=== PATIENT | male | born 1965 | race African-American/Black ===

== ENCOUNTER 2017-03-05 15:15 | Emergency (ER) | payer OTHER ==
[2017-03-05] MEDS ORDERED: NORMAL SALINE 500 ML IV ONE (16:38)
--- NOTE | 2017-03-05 16:41 | ER Document Report ---
ED Medical Screen (RME) - General Chief Complaint: Urinary Problem Stated Complaint: LOW BACK PAIN Notes: I briefly seen and evaluated this patient in my role as physician in triage. I have initiated orders based on this initial evaluation. Please see my colleague' s documentation for complete history, physical, management, diagnosis, and ultimate disposition. My brief evaluation: Patient got a phone call left on his voicemail today by his doctor stating he needs to be followed up because they found something on his lumbar MRI that was concerning. [facility]. He presents with papers from the MRI results that show he has bladder outlet obstruction with bilateral moderate hydronephrosis. Patient has no history of kidney stones. No history of prostate hypertrophy. He does state that his urinary stream has been difficult recently. He denies any fevers chills sweats. No hematuria. On exam, patient alert and oriented no acute distress vital signs are stable patient is afebrile nontoxic appearing. Medical decision making: Initiating workup for bladder lead obstruction with concern for mass versus severe prostatic hypertrophy. Patient is not currently in pain. Past Medical History Renal/ Medical History: Denies: Hx Peritoneal Dialysis Physical Exam - Vital signs Vitals: Temp Pulse Resp BP Pulse Ox 98.5 F 81 24 H 150/56 H 96 03/05/17 15:33 03/05/17 15:33 03/05/17 15:33 03/05/17 15:33 03/05/17 15:33 Course - Vital Signs Vital signs: Temp Pulse Resp BP Pulse Ox 98.5 F 81 24 H 150/56 H 96 03/05/17 15:33 03/05/17 15:33 03/05/17 15:33 03/05/17 15:33 03/05/17 15:33
[2017-03-05 17:05] LABS: ABSOLUTE BASOPHILS # (AUTO) 0.1 10^3/uL (0.0-0.2); ABSOLUTE EOSINOPHILS # (AUTO) 0.2 10^3/uL (0.0-0.6); ABSOLUTE LYMPHOCYTES (AUTO) 1.9 10^3/uL (0.5-4.7); ABSOLUTE MONOCYTES (AUTO) 0.6 10^3/uL (0.1-1.4); ABSOLUTE NEUT (AUTO) 4.8 10^3/uL (1.7-8.2); BASOPHILS % (AUTO) 0.8 % (0-2); HEMATOCRIT 46.6 % (37.9-51.0); HGB HCT DIFFERENCE 1.4; LYMPHOCYTES % (AUTO) 24.7 % (13-45); MEAN CORPUSCULAR HEMOGLOBIN 27.7 pg (27.0-33.4); MEAN CORPUSCULAR HGB CONC 34.3 g/dL (32.0-36.0); MEAN CORPUSCULAR VOLUME 81 fl (80-97); MONOCYTES % (AUTO) 7.3 % (3-13); RED BLOOD COUNT 5.77 10^6/uL (4.35-5.55); RED CELL DISTRIBUTION WIDTH 14.7 % (11.5-14.0); SEGMENTED NEUTROPHILS % (AUTO) 64.2 % (42-78); WHITE BLOOD COUNT 7.5 10^3/uL (4.0-10.5)
[2017-03-05 17:07] LABS: APPEARANCE,URINE CLEAR; BILIRUBIN,URINE NEGATIVE (NEGATIVE); GLUCOSE, URINE >=500 mg/dL (NEGATIVE); KETONES,URINE NEGATIVE (NEGATIVE); LEUKOCYTE ESTERASE,URINE NEGATIVE (NEGATIVE); NITRITE,URINE NEGATIVE (NEGATIVE); PROTEIN,URINE NEGATIVE (NEGATIVE); URINE SPECIFIC GRAVITY 1.011; UROBILINOGEN,URINE NEGATIVE mg/dL (<2.0)
[2017-03-05 17:24] LABS: ALANINE AMINOTRANSFERASE 38 U/L (21-72); ALBUMIN 4.1 g/dL (3.5-5.0); ALKALINE PHOSPHATASE 85 U/L (38-126); ANION GAP 12 (5-19); ASPARTATE AMINO TRANSFERASE 27 U/L (17-59); BILIRUBIN,DIRECT 0.3 mg/dL (0.0-0.4); BILIRUBIN,TOTAL 0.8 mg/dL (0.2-1.3); BLOOD UREA NITROGEN 11 mg/dL (7-20); CALCIUM 9.2 mg/dL (8.4-10.2); CARBON DIOXIDE 26 mmol/L (22-30); CHLORIDE 104 mmol/L (98-107); CREATININE RESULT 1.09 mg/dL (0.52-1.25); GLUCOSE 263 mg/dL (75-110); POTASSIUM 4.3 mmol/L (3.6-5.0); SODIUM 141.5 mmol/L (137-145); TOTAL PROTEIN 7.2 g/dL (6.3-8.2)
--- NOTE | 2017-03-05 18:39 | ER Document Report ---
ED GI/ - General Chief Complaint: Urinary Problem Stated Complaint: LOW BACK PAIN Notes: The patient is a 51-year-old male who presents from the [place] clinic after an outpatient MRI showed bilateral hydronephrosis and is sent to the ER to rule out an obstruction. He says that he is having difficulty urinating over the past several days. He has no history of enlarged prostate. He denies nausea, vomiting, fevers, dysuria, hematuria, chest pain, shortness of breath, headache , diarrhea, constipation or abdominal pain. Past Medical History - General Information source: Patient - Social History Smoking Status: Never Smoker Family History: Reviewed & Not Pertinent Patient has suicidal ideation: No Patient has homicidal ideation: No Renal/ Medical History: Denies: Hx Peritoneal Dialysis Review of Systems - Review of Systems Notes: REVIEW OF SYSTEMS: CONSTITUTIONAL: -fevers, -chills EENT: -eye pain, -difficulty swallowing, -nasal congestion CARDIOVASCULAR:-chest pain, -syncope. RESPIRATORY: -cough, -SOB GASTROINTESTINAL: -abdominal pain, -nausea, -vomiting, -diarrhea GENITOURINARY: -dysuria, -hematuria, +difficulty urinating MUSCULOSKELETAL: +back pain, -neck pain SKIN: -rash or skin lesions. HEMATOLOGIC: -easy bruising or bleeding. LYMPHATIC: -swollen, enlarged glands. NEUROLOGICAL: -altered mental status or loss of consciousness, -headache, - neurologic symptoms PSYCHIATRIC: -anxiety, -depression. ALL OTHER SYSTEMS REVIEWED AND NEGATIVE. Physical Exam - Vital signs Vitals: Temp Pulse Resp BP Pulse Ox 98.5 F 81 24 H 150/56 H 96 03/05/17 15:33 03/05/17 15:33 03/05/17 15:33 03/05/17 15:33 03/05/17 15:33 - Notes Notes: PHYSICAL EXAMINATION: GENERAL: Well-appearing, well-nourished and in no acute distress. HEAD: Atraumatic, normocephalic. EYES: Pupils equal round and reactive to light, extraocular movements intact, sclera anicteric, conjunctiva are normal. ENT: nares patent, oropharynx clear without exudates. Moist mucous membranes. NECK: Normal range of motion, supple without lymphadenopathy LUNGS: Breath sounds clear to auscultation bilaterally and equal. No wheezes rales or rhonchi. HEART: Regular rate and rhythm without murmurs ABDOMEN: Soft, nontender, normoactive bowel sounds. No guarding, no rebound. No masses appreciated. EXTREMITIES: Normal range of motion, no pitting or edema. No cyanosis. NEUROLOGICAL: Cranial nerves grossly intact. Normal speech, normal gait. Normal sensory, motor, and reflex exams. PSYCH: Normal mood, normal affect. SKIN: Warm, Dry, normal turgor, no rashes or lesions noted. Course - Re-evaluation Re-evalutation: Patient has no symptoms at this time. CT abdomen and pelvis do not show any hydronephrosis or evidence of urinary obstruction. Labs are all unremarkable. Patient is asymptomatic at this time. Told him to follow-up with his primary care physician and urologist to discuss urinary hesitancy. - Vital Signs Vital signs: Temp Pulse Resp BP Pulse Ox 98.5 F 81 24 H 150/56 H 96 03/05/17 15:33 03/05/17 15:33 03/05/17 15:33 03/05/17 15:33 03/05/17 15:33 - Laboratory Result Diagrams: 03/05/17 16:52 03/05/17 16:52 Laboratory results interpreted by me: 03/05/17 03/05/17 03/05/17 16:52 16:52 16:52 RBC 5.77 H RDW 14.7 H Glucose 263 H Urine Glucose (UA) >=500 H Urine Ascorbic Acid 40 H - Diagnostic Test Radiology reviewed: Image reviewed, Reports reviewed Radiology results interpreted by me: CT A/P: NAD Discharge - Discharge Clinical Impression: History of urinary hesitancy Condition: Good Disposition: HOME, SELF-CARE Additional Instructions: Have your blood sugar and blood pressure rechecked by your primary care physician. NORMAL EXAM AND WORKUP: At this time, your examination and workup show no significant abnormality. No significant abnormal physical findings were noted. All laboratory, EKG, and imaging (x-ray, CT scans, ultrasound) studies that were ordered show no significant abnormality. Although your examination and all studies that were ordered showed no significant abnormal finding, there are no examinations and no studies that are 100% accurate. There is always the possibility that some abnormality could exist and not be detected with physical examination or within the limits and capabilities of laboratory and other studies. You should return or follow up as you were instructed on your visit today for further evaluation if your symptoms do not resolve.
[2017-03-05 21:48] VITALS: BP 136/56
== END 2017-03-05 21:30 | disposition home or self-care (01) ==
LOC: ER 15:15
DX: R39.198 Other difficulties with micturition (principal); M54.5 Low back pain
CPT/HCPCS: 99284; 96360; 36415; 85025; 80053; 81001; 74177; J7040

== ENCOUNTER → 2020-09-10 | Outpatient (CLI) | payer BC, OTHER ==
--- NOTE | 2020-09-10 15:51 | RADIOLOGY REPORT (SQ) ---
EXAM DESCRIPTION: SHOULDER RIGHT 2 OR MORE VIEWS IMAGES COMPLETED DATE/TIME: 09/10/2020 1:06 pm REASON FOR STUDY: PAIN IN RT SHOULDER M25.511 PAIN IN RIGHT SHOULDER COMPARISON: None. NUMBER OF VIEWS: Three views. TECHNIQUE: Internal rotation, external rotation, and Y view images acquired of the right shoulder. LIMITATIONS: None. FINDINGS: MINERALIZATION: Normal. BONES: No acute fracture. No worrisome bone lesions. JOINTS: No dislocation. Mild acromioclavicular and glenohumeral osteophytosis. VISUALIZED LUNGS AND RIBS: No pneumothorax. No rib fracture. SOFT TISSUES: Questionable axillary soft tissue mass. No radiopaque foreign body. OTHER: No other significant finding. IMPRESSION: No evidence of acute bony abnormality of the right shoulder. Mild acromioclavicular and glenohumeral osteoarthropathy. Questionable axillary soft tissue mass versus skin folds. Recommend correlation with physical exam. TECHNICAL DOCUMENTATION: JOB ID: [id number] 2010 [employer]- All Rights Reserved Reading location - IP/workstation name: [email or web address]
--- NOTE | 2020-09-10 16:31 | RADIOLOGY REPORT (SQ) ---
EXAM DESCRIPTION: SCAPULA RIGHT IMAGES COMPLETED DATE/TIME: 09/10/2020 1:06 pm REASON FOR STUDY: PAIN IN RT SHOULDER M25.511 PAIN IN RIGHT SHOULDER COMPARISON: None. NUMBER OF VIEWS: Two views. TECHNIQUE: Frontal and Y-view images acquired of the right scapula. LIMITATIONS: None. FINDINGS: MINERALIZATION: Normal. BONES: No acute fracture . No worrisome bone lesions. Minimal acromioclavicular and glenohumeral oste ophytes. SOFT TISSUES: No calcifications. VISUALIZED RIBS, SPINE, AND LUNG: No other significant finding. OTHER: No other significant finding. IMPRESSION: No evidence of acute bony abnormality of the right scapula. TECHNICAL DOCUMENTATION: JOB ID: [id number] 2010 [employer] All Rights Reserved Reading location - IP/workstation name: [email or web address]
== END ==
LOC: OD 12:48
PROVIDERS: ATTEND Internal Medicine
DX: M25.511 Pain in right shoulder (principal)